=== PATIENT | male | born 1950 | race Caucasian/White ===

== ENCOUNTER → 2021-11-01 | Outpatient (CLI) | payer MEDICARE, OTHER ==
[~2021-11-01] MED LIST: ENDOCET 7.5-321 EACH PO; GABAPENTIN800 MG PO; HYDROCHLOROTH12.5 M1 PO; ISORDIL TAB 3030 MG PO; LANTUS100 UNIT/1 SQ; LEVOTHYROXINE75 MCG PO; METOPROLOL SUCC25 MG PO; MORPHINE SULFAT30 M4 PO; NORCO 10-325 T1 EACH PO; NOVOLOG FL100 UNIT/1 SQ; OMEPRAZOLE20 MG PO
== END ==
LOC: KOH-I 15:43
DX: R80.9 Proteinuria, unspecified (principal)
CPT/HCPCS: 76775